=== PATIENT | male | born 1995 | race Caucasian/White ===

== ENCOUNTER 2023-02-27 18:20 | Emergency (ER) | payer MEDICAID ==
[~2023-02-27] VITALS: Ht 180.3 cm; Wt 68.0 kg
[2023-02-27] MEDS ORDERED: FENTANYL PF 100MCG/2ML AMPUL IV ONE (19:00)
[2023-02-27] MEDS ORDERED: FENTANYL PF 100MCG/2ML AMPUL ONE (19:06)
[2023-02-27] MEDS ORDERED: PROPOFOL 20 ML IV ONE (19:26)
[2023-02-27] MEDS ORDERED: IBUP-1955 PO (20:35)
[2023-02-27 21:29] VITALS: BP 125/80; TEMP 97.5; O2SAT 99
[2023-02-27] MEDS ORDERED: PROPOFOL 1,000 MG/100 ML BOTTLE IV ONE (21:30)
== END 2023-02-27 20:45 | disposition home or self-care (01) ==
LOC: ER 18:20
DX: S43.084A Other dislocation of right shoulder joint, initial encounter (principal); Z79.899 Other long term (current) drug therapy; W22.8XXA Striking against or struck by other objects, initial encounter; Y93.89 Activity, other specified; Y92.89 Other specified places as the place of occurrence of the external cause; Y99.8 Other external cause status
CPT/HCPCS: 99285; 23650; 96374; 99152; 73030 ×2; J2704; J3010; G0500